=== PATIENT | male | born 1965 | race Caucasian/White ===

== ENCOUNTER → 2018-01-05 | Outpatient (CLI) | payer BC, OTHER | LOC: M WUC 15:43 | DX: M50.30 Other cervical disc degeneration, unspecified cervical region (principal); M25.78 Osteophyte, vertebrae | CPT/HCPCS: 72052 ==

== ENCOUNTER → 2020-12-06 | Outpatient (CLI) | payer SELFPAY | LOC: M LABSMTC 12:43 | PROVIDERS: ATTEND Pediatrics | DX: Z20.822 Contact with and (suspected) exposure to COVID-19 (principal) ==

== ENCOUNTER → 2020-12-15 | Outpatient (REF) | payer OTHER | LOC: M LAB REF 08:24 | PROVIDERS: ATTEND Dermatology | DX: C44.309 Unspecified malignant neoplasm of skin of other parts of face (principal) ==

== ENCOUNTER → 2021-06-29 | Outpatient (CLI) | payer OTHER ==
[~2021-06-29] MED LIST: ATOR1TAB19; LISI20TA33; SEMA7TAB
== END ==
LOC: M LABSMTC 09:41
PROVIDERS: ATTEND Anesthesiology
DX: Z01.812 Encounter for preprocedural laboratory examination (principal); Z20.822 Contact with and (suspected) exposure to COVID-19

== ENCOUNTER 2021-07-04 07:41 | Day surgery (SDC) | payer OTHER ==
[~2021-07-04] VITALS: Ht 185.4 cm; Wt 109.3 kg
[~2021-07-04 07:41] MED LIST changes: +NS 1,000 ML IV ONE
[2021-07-04] MEDS ORDERED: propofoL 200 MG/20 ML VIAL As Ordered ONE (08:16)
--- NOTE | 2021-07-04 08:22 | ROOR ---
Patient Name: Lamine Cantu Procedure Date: 07/04/2021 8:06 AM Date of : 1965 Age: 55 Room: [facility] Gender: Male Note Status: Finalized Procedure: Colonoscopy Indications: Rectal bleeding Providers: Juan David Rowe Jr, MD Referring MD: ABELARDO Roque Requesting Provider: Medicines: Propofol per Anesthesia Complications: No immediate complications. Procedure: Pre-Anesthesia Assessment: - Prior to the procedure, a History and Physical was performed, and patient medications and allergies were reviewed. The patient is competent. The risks and benefits of the procedure and the sedation options and risks were discussed with the patient. All questions were answered and informed consent was obtained. Patient identification and proposed procedure were verified by the physician and the nurse in the pre-procedure area and in the procedure room. Mental Status Examination: alert and oriented. Airway Examination: normal oropharyngeal airway and neck mobility. Respiratory Examination: clear to auscultation. CV Examination: normal. ASA Grade Assessment: II - A patient with mild systemic disease. After reviewing the risks and benefits, the patient was deemed in satisfactory condition to undergo the procedure. The anesthesia plan was to use moderate sedation / analgesia (conscious sedation). Immediately prior to administration of medications, the patient was re-assessed for adequacy to receive sedatives. The heart rate, respiratory rate, oxygen saturations, blood pressure, adequacy of pulmonary ventilation, and response to care were monitored throughout the procedure. The physical status of the patient was re-assessed after the procedure. The Colonoscope was introduced through the anus and advanced to the cecum, identified by appendiceal orifice and ileocecal valve. The colonoscopy was performed without difficulty. The patient tolerated the procedure well. The quality of the bowel preparation was adequate. Findings: The rectum, recto-sigmoid colon, sigmoid colon, descending colon, transverse colon, ascending colon, cecum, appendiceal orifice and ileocecal valve appeared normal. Non-bleeding hemorrhoids were found during endoscopy. The hemorrhoids were Grade II (internal hemorrhoids that prolapse but reduce spontaneously) and Grade III (internal hemorrhoids that prolapse but require manual reduction). Impression: - The rectum, recto-sigmoid colon, sigmoid colon, descending colon, transverse colon, ascending colon, cecum, appendiceal orifice and ileocecal valve are normal. - Non-bleeding hemorrhoids. - No specimens collected. Recommendation: - Discharge patient to home (ambulatory). - Repeat colonoscopy in 10 years for screening purposes. Procedure Code(s): --- Professional --- 51529, Colonoscopy, flexible; diagnostic, including collection of specimen(s) by brushing or washing, when performed (separate procedure) Diagnosis Code(s): --- Professional --- K64.2, Third degree hemorrhoids K62.5, Hemorrhage of anus and rectum CPT copyright 2019 [employer]. All rights reserved. The codes documented in this report are preliminary and upon medical technologist prn review may be revised to meet current compliance requirements. Juan David Rowe MD Juan David Rowe Jr, MD 07/04/2021 8:21:54 AM Electronically signed by Juan David Rowe Jr, MD Number of Addenda: 0 Note Initiated On: 07/04/2021 8:06 AM Estimated Blood Loss: Estimated blood loss: none.
[2021-07-04 08:44] VITALS: BP 120/76
== END 2021-07-04 08:46 | disposition home or self-care (01) ==
LOC: M OPP 07:41
PROVIDERS: ATTEND Surgery
DX: K62.5 Hemorrhage of anus and rectum (principal); K64.2 Third degree hemorrhoids; I10 Essential (primary) hypertension; E78.5 Hyperlipidemia, unspecified; Z79.899 Other long term (current) drug therapy; Z82.49 Family history of ischemic heart disease and other diseases of the circulatory system

== ENCOUNTER → 2022-03-20 | Outpatient (CLI) | payer OTHER ==
[~2022-03-20] MED LIST changes: -NS 1,000 ML IV ONE; -SEMA7TAB; +SEMA7TAB2
== END ==
LOC: M SLEEP HO 09:59
PROVIDERS: ATTEND Family Medicine
DX: G47.10 Hypersomnia, unspecified (principal)

== ENCOUNTER 2024-05-12 12:08 | Outpatient (CLI) | payer OTHER ==
[~2024-05-12] VITALS: Ht 185.4 cm; Wt 118.0 kg
[2024-05-12 12:40] VITALS: BP 159/95; O2SAT 96
[2024-05-12] MEDS ORDERED: SEMA2PEN SQ (13:04)
[2024-05-12 13:08] LABS: HEMATOCRIT 56.8 % (42.0-52.0); MEAN CORPUSCULAR HEMOGLOBIN 33.6 pg (27.0-33.0); MEAN CORPUSCULAR HGB CONC 35.7 g/dl (32.0-36.5); PLATELET COUNT, AUTOMATED 229 10^3/uL (150-450); RED BLOOD COUNT 6.04 10^6/uL (4.30-6.10); WHITE BLOOD COUNT 7.6 10^3/uL (4.0-10.0)
[2024-05-12 13:09] LABS: HEMOGLOBIN 20.3 g/dl (13.5-17.5)
[2024-05-12 13:50] VITALS: BP 144/88; O2SAT 95
== END 2024-05-12 13:55 ==
LOC: M INFU 12:08
PROVIDERS: ATTEND Family Medicine
DX: D45 Polycythemia vera (principal)